=== PATIENT | female | born 1980 | race Two or more races ===

== ENCOUNTER 2024-08-21 13:03 | Emergency (ER) | payer MEDICAID, SELFPAY ==
[2024-08-21 13:03] VITALS: BMI 27.4
[2024-08-21 13:29] VITALS: BP 99/64; PULSE 88; RESP 20; TEMP 36.8; O2SAT 99
--- NOTE | 2024-08-21 13:37 | XR_ITS ---
Examination: Abdomen AP single view Technique: AP portable supine abdomen, single view Exam date and time: August 21, 2024 1340 hours INDICATIONS: Abdominal pain 3 days FINDINGS: Large amounts of stool throughout the colon No obstruction No free air IMPRESSION: Large amounts of stool throughout the colon
--- NOTE | 2024-08-21 13:38 | EDNOTE_ITS ---
<Statement entered by Lorene Cardenas MD - 08/22/24 14:28> As co-signing physician, I was present and available for consult prn. I concur with the plan and care as documented by the midlevel provider. ED Abdominal Pain RME/HPI General Chief Complaint: Abdominal Pain Stated complaint: DIFFUSE ABD PAIN X3 DAYS Time seen by provider: 08/21/24 13:33 Arrival date/time: 08/21/24 13:03 RME / HPI RME / HPI narrative: 44-year-old female patient with significant history of migraine headache, came in for evaluation regarding abdominal discomfort. Patient tells me that for the last few days she noticed abdominal distention with discomfort. She had loose stool today. Denies any vomiting denies any fever denies any other complaints. No medication was taken prior to arrival. Related Data Previous Rx's ?Medication ?Instructions ?Recorded dicyclomine 20 mg tablet 20 mg PO BID PRN abdominal p ain 08/21/24 #20 tabs peg 3350-electrolytes 236 240 ml PO Q10M #4,000 mL gram-22.74 gram-6.74 gram-5.86 gram solution (GaviLyte-G) Allergies Allergy/AdvReac Type Severity Reaction Status Date / Time amoxicillin Allergy Verified 08/21/24 13:06 Review of Systems Review of Systems Narrative Review of Systems: Review of system reviewed and within normal limits except mentioned in HPI ED Exam Narrative Physical exam: VITAL SIGNS: Reviewed. GENERAL APPEARANCE: Alert and interactive, follows commands, no acute distress, HEAD AND FACE: Non-traumatic. ENT: PERRL, pink conjunctivitis, eyelid no trauma, Mucous membrane moist. NECK: Supple, nontender, no nuchal rigidity. CHEST: No tenderness, no crepitus, no paradoxical movement, no retractions. LUNGS: Clear, well ventilated, symmetric, no rales, no wheezing, no ronchi, no stridor, good breath sounds bilaterally. HEART: Regular rate, regular rhythm, no murmur, no gallops. ABDOMEN: Soft, positive bowel sounds, slightly distended, no guarding, nontender, no rebound, no masses, RECTAL: Deferred. GENITAL: Deferred. NEUROLOGICAL: Gross motor function intact sensory function intact, Appropriate for age. MUSCULOSKELETAL: low back nontender, full range of motion. EXTREMITIES: Nontender, full range of motion. SKIN: Color pink, dry, no rash, no lacerations, no abrasions, no contusions. LYMPHATICS: Deferred. Course Quality Measures none Orders Category Date Time Status KUB [XR abdomen 1V] Stat Exams 08/21/24 13:37 Completed CBC Stat Lab 08/21/24 14:02 Completed Comprehensive Metabolic Panel Stat Lab 08/21/24 14:02 Completed HCG Qualitative,Urine Stat Lab 08/21/24 13:52 Completed Lipase Stat Lab 08/21/24 14:02 Completed Prothrombin Time with INR Stat Lab 08/21/24 14:02 Completed UA, C/S IF [Urinalysis, C/S if Indicated] Stat Lab 08/21/24 13:52 Completed Simethicone [Mylicon Chew] Med 08/21/24 13:37 Discontinued 160 mg PO X1 ONE Vital Signs Vital signs: Vital Signs Temperature 98.3 F 08/21/24 13:29 Pulse Rate 88 08/21/24 13:29 Respiratory Rate 20 08/21/24 13:29 Blood Pressure 99/64 08/21/24 13:29 Pulse Oximetry (%) 99 08/21/24 13:29 Oxygen Delivery Method Room Air 08/21/24 13:29 Abdominal Pain MDM MDM Narrative MDM Narrative:: 44-year-old female patient with significant history of migraine headache, came in for evaluation regarding abdominal discomfort. Patient tells me that for the last few days she noticed abdominal distention with discomfort. She had loose stool today. Denies any vomiting denies any fever denies any other complaints. No medication was taken prior to arrival. Patient's workup today all came back unremarkable including normal lipase. X- ray of the abdomen showed moderate amount of fecal material noted in the colon Patient will be sent home on [facility] Patient data External records reviewed:: None Clinical information provided by:: patient Social determinants that could affect healthcare access:: none Patient has the following chronic illnesses:: None How is presenting disease/condition affected by chronic disease/condition?: no chronic disease Evaluation data The following diagnostics were reviewed and interpreted by me:: lab results and radiology exam(s) Lab and/or radiology exams considered but not ordered:: None Interpretation Summary: See results MDM Medications / Prescriptions Medications or Prescriptions considered but not ordered:: None Medication administrations:: Medication Administration History Discontinued Medications Simethicone (Simethicone 80 Mg Chew) 160 mg PO X1 ONE Stop: 08/21/24 13:38 Last Admin: 08/21/24 14:02 Dose: 160 mg Documented By: JARED Simethicone Consultations Consultation(s) initiated? (list below): No Diagnosis Differential diagnosis abdominal pain: abdominal pain, constipation, gastroenteritis and pancreatitis Most likely diagnosis given after review of the tests above:: Constipation, abdominal pain Admission Indicated Admission indicated?: not indicated Explain why admission is indicated or not indicated:: None Admission Request Was there a request for admission?: No Disposition Plan Disposition Plan: Discharge Discharge Attestation Discharge Attestation: The patient was given an opportunity to ask questions and understood the discharge instructions. Discharge instructions specifically effects, indications for sooner follow up or return to the emergency department, and the expected course of current diagnosis. Patient condition: Stable Discharge Plan Plan Patient Disposition: HOME (Self Care) Disposition Comment: stable Prescriptions/Referrals Prescriptions/Med Rec: New peg 3350-electrolytes [GaviLyte-G] 236-22.74-6.74 -5.86 gram recon soln 240 ml PO Q10M Qty: 4000 0RF Rx Instructions: until fecal effluent is clear dicyclomine 20 mg tablet 20 mg PO BID PRN (Reason: abdominal pain) Qty: 20 0RF Referrals: Lebron Sharpe MD [Primary Care Provider] - In 1 week Problem List Clinical Impression: Constipation, Abdominal pain Patient/Caregiver Discharge Instructions Discharge Activity: activity as tolerated Education Materials: ED Constipation (Adult) Additional Instructions: Thank you for the opportunity for serving you today. You are stable for discharged . You are advised to: Follow-up with your PCP in 1 to 2 days Return to ED for worsening of symptoms Increase oral fluids Take medication as prescribed Print Language: Kinyarwanda Stand Alone Forms: Vida Award Info., Patient Portal Info Letter PA/CLARE Supervising Physician SADIE/CLARE Supervising Physician: MD Ronald
[2024-08-21] MEDS: SIMETHICONE 80 MG CHEW 160 MG PO (14:02)
[2024-08-21 14:07] LABS: Collection Type, Urine Clean Catch
[2024-08-21 14:17] LABS: Basophils # (Auto) 0.1 Thou/mm3 (0.0-0.2); Basophils % (Auto) 1 % (0-2.5); Eosinophils # (Auto) 0.6 Thou/mm3 (0.0-0.5); Eosinophils % (Auto) 8 % (0-10); Hematocrit 34.4 % (36.0-46.0); Hemoglobin 11.9 g/dL (12.0-16.0); Immature Granulocytes % (Auto) 0 % (0-0); Immature Granulocytes Auto 0.03 Thou/mm3 (0.00-0.00); Lymphocytes # (Auto) 2.7 Thou/mm3 (1.0-4.8); Lymphocytes % (Auto) 35 % (10-50); Mean Corpuscular HGB Conc 34.6 g/dl (31.0-37.0); Mean Corpuscular Hemoglobin 29.8 pg (25.0-35.0); Mean Corpuscular Volume 86 fL (80-100); Monocytes # (Auto) 0.5 Thou/mm3 (0.0-0.8); Monocytes % (Auto) 7 % (0-12); Neutrophils # (Auto) 3.7 Thou/mm3 (1.8-7.7); Neutrophils % (Auto) 48 % (37-80); Nucleated Red Blood Cell % 0 /100 WBC (0); Platelet Count 326 Thou/mm3 (140-440); RDW Standard Deviation 45.2 fL (36.4-46.3); White Blood Count 7.7 Thou/mm3 (3.6-11.0)
[2024-08-21 14:25] LABS: HCG Qualitative,Urine Negative
[2024-08-21 14:28] LABS: Amorphous Crystals,Urine Present (Absent); Bilirubin,Urine Negative (Negative); Blood,Urine Negative (Negative); Color,Urine Yellow (Lt Yel-Yel); Culture Indicated,Urine Not Indicated; Glucose, Urine Negative (Negative); Ketones,Urine Negative (Negative); Leukocyte Esterase,Urine Positive (Negative); Nitrite,Urine Negative (Negative); PH,Urine 7.5 (5.0-7.0); Protein,Urine Trace (Neg - Trace); RBC,Urine 7 /hpf (0-3); Specific Gravity,Urine 1.029 (1.001-1.035); Squamous Epithelial Cell,Urine 28 /hpf (0-5); Urobilinogen,Urine Negative mg/dL (0.0-1.0); WBC,Urine 3 /hpf (0-5)
[2024-08-21 14:32] LABS: Prothrombin Time 10.5 Seconds (9.0-12.2)
[2024-08-21 14:34] LABS: Alanine Aminotransferase 75 U/L (10-49); Albumin, Serum 4.3 gm/dL (3.5-5.0); Albumin/Globulin Ratio 1.7 (1.2-2.2); Alkaline Phosphatase 108 U/L (46-116); Anion Gap 6 (7-16); Aspartate Amino Transferase 70 U/L (0-34); BUN/Creatinine Ratio 20 Ratio (12-20); Bilirubin,Total 0.3 mg/dL (0.3-1.2); Blood Urea Nitrogen 14 mg/dL (9-23); Calcium 9.2 mg/dL (8.3-10.6); Calcium (Corrected) 9.2 mg/dL (8.5-10.1); Carbon Dioxide 28.2 mMol/L (20.0-31.0); Chloride 108 mMol/L (98-107); Creatinine (Component) 0.7 mg/dL (0.6-1.3); Estimated Creatinine Clearance 103.8 mL/min (>60); Globulin 2.6 gm/dL (2.3-3.5); Glucose 93 mg/dL (74-106); Lipase 54 U/L (12-53); Osmolality,Calculated 283 (275-295); Potassium 3.9 mMol/L (3.4-5.1); Sodium 142 mMol/L (136-145); Total Protein 6.9 gm/dL (5.7-8.2); eGFR > 60 See Note
[2024-08-21 14:42] LABS: Clarity,Urine Hazy (Clear/Hazy)
[2024-08-21 15:31] VITALS: BP 108/64; PULSE 81; RESP 16; TEMP 36.8; O2SAT 100
== END 2024-08-21 15:33 | disposition home or self-care (01) ==
PROVIDERS: Nurse Practitioner Family; Emergency Provider Emergency Medicine; PCP Family Medicine
DX: K59.00 Constipation, unspecified (principal)
CPT/HCPCS: 36415; 74018; 80053; 81001; 81025; 83690; 85025; 85610; 99283; A9270